=== PATIENT | female | born 2000 | race Caucasian/White ===

== ENCOUNTER 2018-01-04 15:48 | Emergency (ER) | payer OTHER ==
[~2018-01-04] VITALS: Ht 160 cm; Wt 63.1 kg
[2018-01-04 19:15] VITALS: BP 132/72
[2018-01-05] MEDS ORDERED: FLUOXETINE HCL20 MG PO (19:53)
[2018-01-05] MEDS ORDERED: TRI-SPRINTEC1 EACH PO (19:54)
== END 2018-01-04 19:22 | disposition home or self-care (01) ==
LOC: EME 15:48
DX: F32.9 Major depressive disorder, single episode, unspecified (principal); F84.0 Autistic disorder
CPT/HCPCS: 90839; 99281; 99284

== ENCOUNTER 2018-01-05 15:08 | Inpatient (IN) | payer OTHER ==
[~2018-01-05] VITALS: Ht 160 cm; Wt 61.3 kg
[2018-01-05 17:50] LABS: HEMATOCRIT 39.2 % (36.0-46.0); HEMOGLOBIN 13.6 G/DL (11.9-15.5); MCH 30.7 PG (29.0-34.0); MCHC 34.7 G/DL (30.0-36.0); MCV 88.5 FL (83-99); PLATELET COUNT 273 K/uL (156-360); RBC DIS.WIDTH-CV 13.2 % (11.8-14.6); RBC DIS.WIDTH-SD 43.3 % (39-53); RED BLOOD COUNT 4.43 M/uL (3.80-5.20)
[2018-01-05 17:58] LABS: CHLORIDE 104 mEq/L (99-109); POTASSIUM 3.9 mEq/L (3.7-5.4); SODIUM 138 mEq/L (136-147)
[2018-01-05 18:00] LABS: GLUCOSE 77 mg/dL (70-99)
[2018-01-05 18:03] LABS: SERUM ETHYL ALCOHOL < 10 mg/dL
[2018-01-05 18:04] LABS: CREATININE 0.7 mg/dL (0.6-1.3); GFR ESTIMATE (CALCULATED) > 59 mL/min/; UREA NITROGEN (BUN) 10 mg/dL (9-23)
[2018-01-05 18:12] LABS: QUANTITATIVE HCG < 4.0 MIU/ML
[2018-01-05 18:13] LABS: APPEARANCE CLEAR ((CLEAR)); BILIRUBIN NEGATIVE; BLOOD SMALL; COLOR YELLOW ((YELLOW)); GLUCOSE (STRIP) NEGATIVE; KETONES 80; LEUKOCYTES NEGATIVE; NITRITE NEGATIVE; PROTEIN (STRIP) NEGATIVE; SPECIFIC GRAVITY 1.019 (1.000-1.030); UROBILINOGEN 0.2 MG/DL (0.2-1.0)
[2018-01-05 18:17] LABS: BACTERIA NONE SEEN /HPF; EPITHELIAL CELLS RARE /HPF; MUCUS 2+ /LPF; RED BLOOD CELLS 0-5 /HPF (0-5); UCUL ADDED? NO; WHITE BLOOD CELLS 0-5 /HPF (0-5)
[2018-01-05 18:24] LABS: AMPHETAMINE NEGATIVE (500 ng/mL); BARBITURATES NEGATIVE (200 ng/mL); BENZODIAZEPINES PRESUMPTIVE POSITIVE (150 ng/mL); BUPRENORPHINE NEGATIVE (10 ng/mL); COCAINE NEGATIVE (150 ng/mL); METHADONE NEGATIVE (200 ng/mL); METHAMPHETAMINE NEGATIVE (500 ng/mL); OPIATES (MORPHINE) NEGATIVE (100 ng/mL); OXYCODONE NEGATIVE (100 ng/mL); PHENCYCLIDINE NEGATIVE (25 ng/mL); PROPOXYPHENE NEGATIVE (300 ng/mL); THC CANNABINOIDS NEGATIVE (50 ng/mL); TRICYCLIC ANTIDEPRESSANTS NEGATIVE (300 ng/mL)
[2018-01-05 19:02] LABS: BENZODIAZEPINES, URINE SCREEN Negative (200 ng/mL)
[2018-01-05 19:15] VITALS: BP 121/65
[2018-01-05] MEDS ORDERED: FLUOXETINE HCL20 MG PO (19:53)
[2018-01-05] MEDS ORDERED: TRI-SPRINTEC1 EACH PO (19:54)
[2018-01-06 09:07] VITALS: BP 100/60; BP 115/63
[2018-01-06 16:08] VITALS: BP 116/58
[2018-01-07 07:53] VITALS: BP 120/60
[2018-01-07 15:37] VITALS: BP 120/61
[2018-01-08 07:59] VITALS: BP 114/68
[2018-01-08 16:14] VITALS: BP 126/69
[2018-01-09 07:39] VITALS: BP 117/64
[2018-01-09] MEDS ORDERED: ESCITALOPRAM OX10 MG PO (09:27)
[2018-01-09] MEDS ORDERED: GABAPENTIN100 MG PO (09:27)
== END 2018-01-09 13:54 | disposition home or self-care (01) | DRG 884 ==
LOC: EME 15:08 → 1WEST 17:50 → EDOF 17:50 → 1WEST 17:50 → ENRESERV 19:05 → 1WEST 01-09 13:54
PROVIDERS: Emergency Medicine
DX: F84.0 Autistic disorder (principal); F80.2 Mixed receptive-expressive language disorder; F43.21 Adjustment disorder with depressed mood; R45.851 Suicidal ideations
CPT/HCPCS: 80048; 81003; 84702; 84999; 85027; 90839; 97150 GO; 97165 GO; 99281; 99284; 99285; G0480; Q0177